=== PATIENT | female | born 1965 | race Caucasian/White ===

== ENCOUNTER → 2018-10-09 | Outpatient (CLI) | payer BC | LOC: LABWHC1 13:01 | PROVIDERS: ATTEND Physician Assistant | DX: M84.30XA Stress fracture, unspecified site, initial encounter for fracture (principal) | CPT/HCPCS: 36415; 82306 ==

== ENCOUNTER → 2018-12-01 | Outpatient (CLI) | payer BC | LOC: LABWHC1 13:39 | PROVIDERS: ATTEND Physician Assistant | DX: M23.8X1 Other internal derangements of right knee (principal); M25.561 Pain in right knee; F17.200 Nicotine dependence, unspecified, uncomplicated; M25.572 Pain in left ankle and joints of left foot; S93.402D Sprain of unspecified ligament of left ankle, subsequent encounter; S82.392D Other fracture of lower end of left tibia, subsequent encounter for closed fracture with routine healing | CPT/HCPCS: 36415; 82306 ==

== ENCOUNTER 2019-05-13 09:39 | Day surgery (SDC) | payer BC, OTHER ==
[2019-05-11 15:36] VITALS: BMI 34.0
[~2019-05-13 09:39] MED LIST: LACTATED RINGERS 1,000 ML IV SCH
[2019-05-13 10:04] VITALS: TEMP 97.4
[2019-05-13] MEDS ORDERED: LIDOCAINE 1% 20 ML VIAL (10MG/ML) FOR IV START INTRADERMA ONE (10:09)
[2019-05-13] MEDS ORDERED: LIDOCAINE 1% INJ 10MG/ML (20 ML MDV) ONE (10:33)
[2019-05-13] MEDS ORDERED: PROPOFOL 10 MG/ML 20 ML VIAL IV ONE (10:33)
--- NOTE | 2019-05-13 11:20 | P.PCN ---
Date of Procedure: 05/13/19 Description of Procedure: BRIEF HISTORY: Patient is a pleasant 53-year-old female presents for outpatient colonoscopy for evaluation of positive cologard performed in colorectal cancer screening in the outpatient setting. Patient denies any change in bowel habits, blood per rectum, abdominal pain or family history of colon cancer. No prior colonoscopies reported. PROCEDURE PERFORMED: Colonoscopy with polypectomy. PREOPERATIVE DIAGNOSIS: Positive cologard, screening for malignant neoplasm of the colon, no prior colonoscopies. ESTIMATED BLOOD LOSS: Minimal. IV sedation per Anesthesia. PROCEDURE: After informed consent was obtained, the patient, was brought into the endoscopy unit. IV sedation was administered by Anesthesia under continuous monitoring. Digital rectal examination was normal. Initially the Olympus CF-190 flexible video colonoscope was then inserted in the rectum, gradually advanced into the cecum without any difficulty. Careful examination was performed as the scope was gradually being withdrawn. Ileocecal valve and the appendiceal orifice were visualized and appeared normal. Prep was . Mucosa of the cecum, ascending colon, transverse colon, descending colon, sigmoid colon, and rectum appeared normal. Sessile 4 mm sigmoid polyp removed with cold forcep polypectomy. Mild internal hemorrhoids. Retroflexion was performed in the rectum and no lesions were seen. The patient tolerated the procedure well. IMPRESSION: Normal-appearing colon from rectum to cecum. Sigmoid polyp removed with cold forceps. Mild internal hemorrhoids. RECOMMENDATIONS: Findings of this examination were discussed with the patient and her mother. Await pathology from polypectomy. Okay to resume diet. Follow-up in 5 years for repeat colonoscopy, pending pathology from polypectomy.
[2019-05-13 11:24] VITALS: BP 91/50; PULSE 62; RESP 18
== END 2019-05-13 11:45 | disposition home or self-care (01) ==
LOC: ORWHC2ENDO 09:39
PROVIDERS: ATTEND Internal Medicine
DX: D12.5 Benign neoplasm of sigmoid colon (principal); K64.8 Other hemorrhoids; F17.200 Nicotine dependence, unspecified, uncomplicated; E66.9 Obesity, unspecified; Z68.34 Body mass index [BMI] 34.0-34.9, adult; Z79.899 Other long term (current) drug therapy
CPT/HCPCS: 45380; 88305; J2001; J2704

== ENCOUNTER → 2020-12-19 | Outpatient (CLI) | payer OTHER | END | disposition home or self-care (01) | LOC: LABWHC1 16:45 | PROVIDERS: ATTEND Family Medicine | DX: Z03.89 Encounter for observation for other suspected diseases and conditions ruled out (principal) | CPT/HCPCS: U0003; C9803 ==